=== PATIENT | female | born 1955 | race Caucasian/White ===

== ENCOUNTER → 2021-01-13 | Outpatient (CLI) | payer SELFPAY ==
[~2021-01-13] MED LIST: COMBIVENT0.074 GM/I INH; PREDNISONE20 MG PO
== END ==
LOC: KOH-I 08:50
DX: S82.832D Other fracture of upper and lower end of left fibula, subsequent encounter for closed fracture with routine healing (principal)
CPT/HCPCS: 73610

== ENCOUNTER → 2021-02-16 | Outpatient (CLI) | payer OTHER | LOC: KOH-I 08:28 | DX: S82.832D Other fracture of upper and lower end of left fibula, subsequent encounter for closed fracture with routine healing (principal); M19.072 Primary osteoarthritis, left ankle and foot; X58.XXXD Exposure to other specified factors, subsequent encounter | CPT/HCPCS: 73610 ==